=== PATIENT | male | born 1940 | race African-American/Black ===

== ENCOUNTER 2017-01-10 21:31 | Observation (INO) | payer MEDICARE, OTHER ==
[~2017-01-10] VITALS: Ht 180.3 cm; Wt 96.2 kg
[~2017-01-10 21:31] MED LIST: AMLO10TA2; COLC0.6T; HYDR500T13
[2017-01-10 22:40] LABS: Basophils # (auto) 0 uL; Basophils % (auto) 0.4 % (0.0-2.0); Eosinophils # (auto) 0.3 uL; Hematocrit 44.8 % (41.0-53.0); Hemoglobin 14.6 g/dL (13.5-17.5); Lymphocytes # (auto) 1.7 uL; Lymphocytes % (auto) 16.7 % (10.0-50.0); Mean Corpuscular Hemoglobin 30.4 pg (28.0-32.0); Mean Corpuscular Hgb Conc. 32.5 g/dL (32.0-36.0); Mean Corpuscular Volume 93.6 fL (80.0-100.0); Mean Platelet Volume 9.3 fL (7.4-10.4); Monocytes # (auto) 0.9 uL; Monocytes % (auto) 8.9 % (0.0-12.0); Platelet Count (auto) 270 10^3/uL (140-450); Red Cell Distribution Width 16.7 % (11.6-16.0); White Blood Cell 9.9 10^3/uL (4.4-10.8)
[2017-01-10 22:59] LABS: Albumin 3.2 g/dL (3.4-5.0); Anion Gap 11 (5-15); Aspartate Aminotransferase 6 U/L (15-37); BUN/Creatinine Ratio 10.4; Blood Urea Nitrogen 19 mg/dL (7-18); Calcium 8.6 mg/dL (8.5-10.1); Carbon Dioxide 24 mmol/L (21-32); Chloride 110 mmol/L (98-107); GFR African American 46 mL/min; GFR Non-African American 38 mL/min; Glucose 93 mg/dL (74-106); Potassium 4.2 mmol/L (3.5-5.1); Sodium 145 mmol/L (136-145)
[2017-01-10 23:04] LABS: Alkaline Phosphatase 65 U/L (45-117); Bilirubin, Total 0.4 mg/dL (0.2-1.0); Total Protein 8.2 g/dL (6.4-8.2)
[2017-01-11 05:50] LABS: Urine Bilirubin Negative (Negative); Urine Color Yellow (Yellow); Urine Glucose Normal (Normal); Urine Urobilinogen Normal (Negative)
[2017-01-11 05:51] LABS: Urine Blood 3+ /uL (Negative); Urine Ketone Negative (Negative); Urine Nitrite Negative (Negative)
[2017-01-11 06:06] LABS: Urine Mucus FEW (None Seen); Urine RBC 68 /hpf (0 - 3); Urine Squamous Epithelial Cell FEW /hpf (<5)
[2017-01-11 06:30] VITALS: BP 162/80
== END 2017-01-11 09:27 | disposition home or self-care (01) | DRG 694 ==
LOC: ER 21:35 → OVERFLOW 01-11 06:52 → ER 01-11 09:11
PROVIDERS: ADMIT Emergency Medicine; ATTEND Emergency Medicine
DX: N13.30 Unspecified hydronephrosis (principal); N20.1 Calculus of ureter; K57.90 Diverticulosis of intestine, part unspecified, without perforation or abscess without bleeding; K40.20 Bilateral inguinal hernia, without obstruction or gangrene, not specified as recurrent; M43.17 Spondylolisthesis, lumbosacral region; M54.2 Cervicalgia; I10 Essential (primary) hypertension; M10.9 Gout, unspecified; N40.0 Benign prostatic hyperplasia without lower urinary tract symptoms
CPT/HCPCS: 36415; 51702; 72040; 74176; 80053; 81001; 84484; 85025; 93005; 99285; G0378

== ENCOUNTER → 2018-06-02 | Outpatient (CLI) | payer MEDICARE, OTHER ==
[~2018-06-02] MED LIST changes: +AMLO10TA12 OR; -AMLO10TA2; +AMLO5TAB13 PO; +CIPR-173 PO; -COLC0.6T; +COLCPOW2 PO; +FINA5TAB4 PO; +HYDR-4683 PO; -HYDR500T13; +TAMS0.4C36 PO
== END | disposition home or self-care (01) ==
LOC: Rad HDHVI 13:07
PROVIDERS: ATTEND Internal Medicine Cardiovascular Disease
DX: I07.1 Rheumatic tricuspid insufficiency (principal); I45.10 Unspecified right bundle-branch block; I49.5 Sick sinus syndrome
CPT/HCPCS: 93306; 93880

== ENCOUNTER 2018-11-11 14:35 | Emergency (ER) | payer MEDICARE, OTHER ==
[~2018-11-11] VITALS: Ht 180.3 cm; Wt 93.0 kg
[2018-11-11 15:21] VITALS: BP 170/90
[2018-11-11] MEDS ORDERED: methylPREDNISolone SOD SUCC 125 MG/2 ML VL IM ONE (15:30)
[2018-11-11] MEDS ORDERED: cefTRIAXone SOD 1,000 MG VL IM ONE (15:30)
== END 2018-11-11 16:00 | disposition home or self-care (01) ==
LOC: ER 14:40
DX: J20.9 Acute bronchitis, unspecified (principal); J03.90 Acute tonsillitis, unspecified; I10 Essential (primary) hypertension; M10.9 Gout, unspecified; Z87.442 Personal history of urinary calculi
CPT/HCPCS: 71046; 96372; 99283; J0696; J2930

== ENCOUNTER 2018-12-08 22:20 | Emergency (ER) | payer MEDICARE, OTHER ==
[~2018-12-08] VITALS: Ht 180.3 cm; Wt 93.0 kg
[2018-12-08 22:25] VITALS: BP 132/81
[2018-12-09] MEDS ORDERED: cefTRIAXone SOD 1,000 MG VL IM ONE (02:30)
[2018-12-09] MEDS ORDERED: methylPREDNISolone SOD SUCC 125 MG/2 ML VL IM ONE (02:30)
== END 2018-12-09 03:13 | disposition home or self-care (01) ==
LOC: ER 22:21
DX: J45.909 Unspecified asthma, uncomplicated (principal); I10 Essential (primary) hypertension; Z87.442 Personal history of urinary calculi
CPT/HCPCS: 96372; 99283; J0696; J2930

== ENCOUNTER 2019-04-14 08:49 | Emergency (ER) | payer MEDICARE, OTHER ==
[~2019-04-14] VITALS: Ht 180.3 cm; Wt 95.7 kg
[2019-04-14 10:16] LABS: Basophils # (auto) 0 uL; Basophils % (auto) 0.8 % (0.0-2.0); Eosinophils # (auto) 0.4 uL; Eosinophils % (auto) 6.3 % (0.0-7.0); Hematocrit 41.7 % (41.0-53.0); Hemoglobin 13.5 g/dL (13.5-17.5); Lymphocytes # (auto) 1.8 uL; Lymphocytes % (auto) 31.1 % (10.0-50.0); Mean Corpuscular Hgb Conc. 32.5 g/dL (32.0-36.0); Mean Corpuscular Volume 95.5 fL (80.0-100.0); Monocytes # (auto) 0.6 uL; Monocytes % (auto) 10.5 % (0.0-12.0); Neutrophils % (auto) 51.3 % (37.0-80.0); Platelet Count (auto) 144 10^3/uL (140-450); Red Blood Cells 4.37 10^6/uL (4.5-5.90); Red Cell Distribution Width 15.7 % (11.8-14.3); White Blood Cell 5.9 10^3/uL (4.4-10.8)
[2019-04-14 10:33] LABS: Albumin 3.1 g/dL (3.4-5.0); Calcium 8.4 mg/dL (8.5-10.1)
[2019-04-14 10:37] LABS: BUN/Creatinine Ratio 13.2; Bilirubin, Total 0.6 mg/dL (0.2-1.0); Total Protein 6.7 g/dL (6.4-8.2)
[2019-04-14 11:35] LABS: Urine WBC None Seen /hpf (0 - 3)
[2019-04-14 12:46] LABS: Urine Bacteria NONE SEEN /hpf (None Seen); Urine Blood 2+ /uL (Negative)
[2019-04-14 13:47] VITALS: BP 158/82
== END 2019-04-14 14:08 | disposition home or self-care (01) ==
LOC: ER 08:53
DX: N39.0 Urinary tract infection, site not specified (principal); I10 Essential (primary) hypertension; Z79.899 Other long term (current) drug therapy; Z87.442 Personal history of urinary calculi
CPT/HCPCS: 36415; 74176; 80053; 81001; 85025

== ENCOUNTER 2019-04-23 23:01 | Emergency (ER) | payer MEDICARE, OTHER ==
[~2019-04-23] VITALS: Ht 180.3 cm; Wt 95.3 kg
[2019-04-23 23:18] VITALS: BP 139/76
[2019-04-23 23:58] LABS: Urine Bacteria FEW /hpf (None Seen); Urine Blood 3+ /uL (Negative); Urine Mucus FEW (None Seen); Urine WBC 82 /hpf (0 - 3)
[2019-04-24] MEDS ORDERED: PHENAZOPYRIDINE HCL 100 MG TAB PO ONE (01:45)
[2019-04-24] MEDS ORDERED: cefTRIAXone SOD 1,000 MG VL IM ONE (01:45)
== END 2019-04-24 02:18 | disposition home or self-care (01) ==
LOC: ER 23:01
DX: N39.0 Urinary tract infection, site not specified (principal); I10 Essential (primary) hypertension; Z87.442 Personal history of urinary calculi
CPT/HCPCS: 81001; 96372; 99283; J0696

== ENCOUNTER 2019-04-27 13:50 | Inpatient (IN) | payer MEDICARE, OTHER ==
[~2019-04-27] VITALS: Ht 180.3 cm; Wt 75.0 kg
[2019-04-27] MEDS ORDERED: SODIUM CHLORIDE 0.9% 1,000 ML IV ONE (15:24)
[2019-04-27] MEDS ORDERED: SODIUM CHLORIDE 0.9% 500 ML IVB ONE (15:24)
[2019-04-27 15:58] LABS: Basophils # (auto) 0.1 uL; Basophils % (auto) 1.2 % (0.0-2.0); Eosinophils # (auto) 0.2 uL; Hematocrit 43.4 % (41.0-53.0); Hemoglobin 14.1 g/dL (13.5-17.5); Lymphocytes # (auto) 1.8 uL; Lymphocytes % (auto) 23.3 % (10.0-50.0); Mean Corpuscular Hgb Conc. 32.6 g/dL (32.0-36.0); Mean Corpuscular Volume 95.3 fL (80.0-100.0); Monocytes # (auto) 0.7 uL; Monocytes % (auto) 9.3 % (0.0-12.0); Neutrophils # (auto) 4.9 uL; Neutrophils % (auto) 63.2 % (37.0-80.0); Platelet Count (auto) 151 10^3/uL (140-450); Red Blood Cells 4.56 10^6/uL (4.5-5.90); Red Cell Distribution Width 15.3 % (11.8-14.3); White Blood Cell 7.7 10^3/uL (4.4-10.8)
[2019-04-27 16:11] LABS: Urine WBC None Seen /hpf (0 - 3)
[2019-04-27 16:18] LABS: Albumin 3.6 g/dL (3.4-5.0); Magnesium 2.5 mg/dL (1.6-2.6); Potassium 4.6 mmol/L (3.5-5.1)
[2019-04-27 16:21] LABS: Bilirubin, Total 0.4 mg/dL (0.2-1.0); Total Protein 8.2 g/dL (6.4-8.2)
[2019-04-27 16:52] LABS: Urine Bacteria NONE SEEN /hpf (None Seen); Urine Blood 2+ /uL (Negative)
[2019-04-27] MEDS ORDERED: cefTRIAXone 1GM/50ML D5W 50 ML IV ONE (17:30)
[2019-04-27] MEDS ORDERED: HYDROcodone-ACET 5/325MG TAB PO PRN (17:45)
[2019-04-27] MEDS ORDERED: ACETAMINOPHEN 500 MG TAB PO PRN (17:45)
[2019-04-27] MEDS ORDERED: MORPHINE SULF INJ 2 MG/ML SYRINGE 1ML IV PRN ×2 (17:45)
[2019-04-27] MEDS ORDERED: ONDANSETRON HCL 4 MG/2 ML VIAL IV PRN (17:45)
[2019-04-27] MEDS ORDERED: NITROGLYCERIN 0.4 MG SL TAB SL PRN (17:45)
[2019-04-27] MEDS: SODIUM CHLORIDE 0.9% 1,000 ML IV SCH (18:59)
--- NOTE | 2019-04-27 20:05 | NUR ---
MS admit from ER BARTIAN Goldstein admitted to tele/MS. DID NOT GET REPORT/SBAR FROM ER NURSE. Patient oriented to Rico hu RN, [facility] unit, 222 room, A bed, and unit policies regarding patient care and visiting hours. Patient weighed by bedscale and encouraged to call if they need something. All questions and concerns addressed, patient verbalized understanding.
[2019-04-27 20:15] VITALS: BP 188/110
--- NOTE | 2019-04-27 20:15 | NUR ---
PATIENT DOES NOT REMEMBER THE MEDICATION HE IS TAKING AT HOME, WILL HAVE HIS DAUGHTER CHECK IT FOR HIM. Addendum: 04/27/19 at 2154 by Anabelle Magana RN Amended: Links added.
--- NOTE | 2019-04-27 21:08 | NUR ---
Spoke to hospitalist and notify of patient having bloody urine with clots, 500 cc output. New order given of Hemoglobin and hematocrit labs.
--- NOTE | 2019-04-27 21:15 | NUR ---
confirmed with h and h lab draw. clinical laboratory service teacher said litigation claim representative will be here shortly.
[2019-04-27] MEDS: DOCUSATE SOD 100 MG CAP PO SCH (21:23)
--- NOTE | 2019-04-27 21:58 | NUR ---
Spoke to MD Kamara urologist and notified him of patient having output of 500 cc of serosanguineous urine with clots, flushed goodwin and clots came out, changed leg back to regular goodwin bag and patient is resting comfortably at this time. MD Kamara asked to have EKG and chest xray for surgery tomorrow. Will carry out.
[2019-04-27 22:04] LABS: Hematocrit 40.7 % (41.0-53.0); Hemoglobin 13.1 g/dL (13.5-17.5)
--- NOTE | 2019-04-27 22:50 | NUR ---
Spoke to MD Kamara and notified him of patient having blood clots and urine output has stopped. MD Kamara provided new order of 3 way goodwin 20 malian with continuos bladder irrigation. Readback and confirmed. MD Kamara also advised me if patient goodwin is having issues after the continuos goodwin is placed, to stop irrigation and leave it till AM. Will Carry out.
[2019-04-27 23:04] VITALS: BP 137/73
--- NOTE | 2019-04-28 | NUR ---
SUCCESSFUL [address] KIRKLAND PLACED AND CONTINUOUS IRRIGATION STARTED. DARK RED SEROSANGUINEOUS URINE DRAINING INTO KIRKLAND WITH CLOTS.
[2019-04-28] MEDS: SODIUM CHLORIDE 0.9% 1,000 ML IV SCH ×3 (01:32→20:57)
--- NOTE | 2019-04-28 01:37 | NUR ---
continuous irrigation working properly. Urine is clear light pink. No clots noted. Patient states "I feel much better". Will continue to monitor patient.
[2019-04-28 04:45] VITALS: BP 105/69
[2019-04-28 07:02] LABS: Basophils # (auto) 0 uL; Basophils % (auto) 0.4 % (0.0-2.0); Eosinophils # (auto) 0.3 uL; Eosinophils % (auto) 3.2 % (0.0-7.0); Hematocrit 36.8 % (41.0-53.0); Hemoglobin 11.9 g/dL (13.5-17.5); Lymphocytes # (auto) 1.8 uL; Lymphocytes % (auto) 22.7 % (10.0-50.0); Mean Corpuscular Hemoglobin 30.9 pg (28.0-32.0); Mean Corpuscular Hgb Conc. 32.3 g/dL (32.0-36.0); Mean Corpuscular Volume 95.9 fL (80.0-100.0); Monocytes # (auto) 0.9 uL; Monocytes % (auto) 11.5 % (0.0-12.0); Neutrophils % (auto) 62.2 % (37.0-80.0); Platelet Count (auto) 130 10^3/uL (140-450); Red Blood Cells 3.83 10^6/uL (4.5-5.90)
--- NOTE | 2019-04-28 07:15 | NUR ---
Open Shift Note Received report on patient, awake and lying in bed with HOB above 30 degrees. Patient receiving continuous bladder irrigation at this time, states no pain. Discussed POC with patient and plans for procedure with Dr Kamara. Patient verbalized understanding. Bed in lowest locked position, side rails up x2 and call light within reach. Will continue to monitor.
[2019-04-28 07:17] LABS: INR 1.01 (0.9-1.15); Partial Thromboplastin Time 27.3 sec (23.64-32.05)
[2019-04-28 07:20] LABS: BUN/Creatinine Ratio 14.6; Calcium 8.3 mg/dL (8.5-10.1); Potassium 4.7 mmol/L (3.5-5.1)
--- NOTE | 2019-04-28 07:27 | NUR ---
Total irrigation output 14,150 ml pink urine and no clots noted. patient is resting in bed. No distress, pain, sob noted on patient. Notified Day RN of continuous bladder irrigation.
--- NOTE | 2019-04-28 09:07 | NUR ---
Patient Down To Pre Op Patient taken down to pre-op, made pre-op nurse Ricardo aware of patient's continuous bladder irrigation, verbalized understanding. Patient taken via bed, oriented nurse to irrigation and goodwin emptying. No signs of distress.
[2019-04-28 09:28] VITALS: BP 130/73
[2019-04-28] MEDS ORDERED: ceFAZolin 1GM/50ML 50 ML IV ONE (09:36)
[2019-04-28] MEDS ORDERED: MEPERIDINE HCL (25 MG/ML) 1ML VIAL ONE ×2 (09:49→11:18)
[2019-04-28] MEDS ORDERED: fentaNYL CITRATE 100 MCG/2 ML VL ONE (09:49)
[2019-04-28] MEDS ORDERED: MIDAZOLAM HCL 1MG/1ML-2 ML VIAL ONE (09:49)
[2019-04-28] MEDS ORDERED: DexAMETHasone SOD PHOS 10MG/1ML VIAL INJ ONE (09:49)
[2019-04-28] MEDS ORDERED: ETOMIDATE (2MG/ML) 20ML VIAL IV ONE (09:52)
[2019-04-28] MEDS ORDERED: SUCCINYLCHOLINE CHLORIDE 20 MG/ML 10ML VIAL IV ONE (09:55)
[2019-04-28] MEDS: amLODIPine BESYLATE 5 MG TAB PO SCH (10:00)
[2019-04-28] MEDS: DOCUSATE SOD 100 MG CAP PO SCH ×2 (10:00→20:57)
[2019-04-28] MEDS: FAMOTIDINE 20 MG TAB PO SCH (10:00)
[2019-04-28] MEDS ORDERED: ONDANSETRON HCL 4 MG/2 ML VIAL IV ONE (10:30)
[2019-04-28] MEDS ORDERED: ePHEDrine SULFATE 50 MG/ML AMP IV PRN (10:30)
[2019-04-28] MEDS ORDERED: LABETALOL HCL 5 MG/ML 4ML SYRINGE IV PRN (10:30)
[2019-04-28] MEDS ORDERED: KETOROLAC TROMETH 15 mg/ml 1ML VL IV ONE (10:30)
[2019-04-28] MEDS ORDERED: HYDROmorphone HCL 2 MG/ML VL IV PRN (10:30)
[2019-04-28] MEDS ORDERED: MORPHINE SULFATE 4 MG/ML SYR/VIAL IV ONE (12:00)
--- NOTE | 2019-04-28 13:20 | NUR ---
Patient was away from room for 1300 vital signs.
[2019-04-28 17:31] VITALS: BP 130/86
[2019-04-28] MEDS: cefTRIAXone 1GM/50ML D5W 50 ML IV SCH (18:27)
--- NOTE | 2019-04-28 18:47 | NUR ---
Closing Note Patient receiving continuous bladder irrigation. 15,000mL administered through catheter, 17,450mL returned during day shift. Urine bright red/pink colored. Patient also still receiving IV fluids. Bed in lowest locked position, side rails up x2 and call light within reach. No distress noted.
--- NOTE | 2019-04-28 19:30 | NUR ---
Opening Shift Note: A&Ox4, resting in bed. Room air, pain level 0/10, and currently bedrest; baseline independent without assistive devices. Bed locked in lowest position, side rails up x2, call light within reach, and bed alarm on for patient safety. IV 20 g in right forearm running NS at 125 ml/hr inserted on 04/27/19. Skin intact. Patient is s/p cystoscopy with TURP and clot evacuation with Dr. Kamara on 04/28/19. Currently has a CBI; hematuria present; light red in color with no clots present. POC discussed and questions answered. Will continue to round and reposition prn.
[2019-04-28 22:00] VITALS: BP 143/80
--- NOTE | 2019-04-29 05:02 | NUR ---
Page sent to legal entity controller hospitalist for a new prn order for antiacid; patient states the presence of heartburn.
[2019-04-29 05:10] VITALS: BP 123/50
[2019-04-29] MEDS: SODIUM CHLORIDE 0.9% 1,000 ML IV SCH ×3 (05:11→17:31)
--- NOTE | 2019-04-29 05:27 | NUR ---
Return page: new order for tums prn.
[2019-04-29] MEDS ORDERED: CALCIUM CARB 500 MG CHEW TAB PO PRN (05:30)
[2019-04-29 06:32] LABS: Basophils # (auto) 0 uL; Basophils % (auto) 0.1 % (0.0-2.0); Eosinophils # (auto) 0 uL; Hematocrit 32.9 % (41.0-53.0); Hemoglobin 10.9 g/dL (13.5-17.5); Lymphocytes # (auto) 0.9 uL; Lymphocytes % (auto) 9.8 % (10.0-50.0); Mean Corpuscular Hemoglobin 31.4 pg (28.0-32.0); Mean Corpuscular Hgb Conc. 33.3 g/dL (32.0-36.0); Mean Corpuscular Volume 94.4 fL (80.0-100.0); Monocytes # (auto) 0.7 uL; Neutrophils # (auto) 7.9 uL; Neutrophils % (auto) 83.1 % (37.0-80.0); Platelet Count (auto) 127 10^3/uL (140-450); Red Blood Cells 3.48 10^6/uL (4.5-5.90); Red Cell Distribution Width 15.3 % (11.8-14.3); White Blood Cell 9.6 10^3/uL (4.4-10.8)
--- NOTE | 2019-04-29 06:45 | NUR ---
Continuous Bladder Irrigation: Total in for CBI: 24,000 ml Total out for CBI: 29,450 ml Color of output is rolon red with no clots present. Patient states no abdominal pain or presents with abdominal distention
[2019-04-29 06:55] LABS: Calcium 8.5 mg/dL (8.5-10.1); Potassium 5.4 mmol/L (3.5-5.1)
[2019-04-29 07:00] LABS: Albumin 2.7 g/dL (3.4-5.0); BUN/Creatinine Ratio 15.3; Bilirubin, Total 0.4 mg/dL (0.2-1.0); Total Protein 6.1 g/dL (6.4-8.2)
--- NOTE | 2019-04-29 08:00 | NUR ---
Opening Shift Note Assumed care of patient, awake and alert. No S/S of distress/SOB or pain. Patient on CBI with rolon colored urine output. Instructed on POC and to call for assist PRN, will continue to monitor for changes Q1hr and PRN.
[2019-04-29] MEDS: cefTRIAXone 1GM/50ML D5W 50 ML IV SCH (08:27)
[2019-04-29 09:00] VITALS: BP 140/70
[2019-04-29] MEDS: FAMOTIDINE 20 MG TAB PO SCH (09:33)
[2019-04-29] MEDS: DOCUSATE SOD 100 MG CAP PO SCH ×2 (09:34→22:00)
[2019-04-29] MEDS: amLODIPine BESYLATE 5 MG TAB PO SCH (09:34)
[2019-04-29] MEDS: BELLADONNA ALKAL/OPIUM (16.2/30MG) RECT SUPP PR SCH (10:31)
[2019-04-29 13:00] VITALS: BP 117/74
--- NOTE | 2019-04-29 16:24 | NUR ---
assessment No discharge needs identified at this time. Addendum: 04/29/19 at 1625 by Yashira DILLARD Amended: Links added.
[2019-04-29 18:01] VITALS: BP 125/78
--- NOTE | 2019-04-29 18:32 | NUR ---
Intake and Output Total Oral intake-1000ml Total IVF in- 1500ml CBI: total in-[id number] CBI: total out-[id number]
--- NOTE | 2019-04-29 20:30 | NUR ---
Opening Shift Note: A&Ox4, resting in bed. Room air, pain level 0/10, and currently bedrest; baseline independent without assistive devices. Bed locked in lowest position, side rails up x2, call light within reach, and bed alarm on for patient safety. IV 20 g in right forearm running NS at 125 ml/hr inserted on 04/29/19. Skin intact. Patient is s/p cystoscopy with TURP and clot evacuation with Dr. Kamara on 04/28/19. Currently has a CBI; hematuria present; light red in color with no clots present. POC discussed and questions answered. Will continue to round and reposition prn.
[2019-04-29 22:00] VITALS: BP 124/66
[2019-04-30] MEDS: SODIUM CHLORIDE 0.9% 1,000 ML IV SCH ×3 (02:39→17:05)
[2019-04-30 05:00] VITALS: BP 106/60
--- NOTE | 2019-04-30 06:08 | NUR ---
New IV: IV 20 g in right forearm leaking and discontinued. New IV 20 g in left forearm inserted x1 attempt. Patient tolerated well.
--- NOTE | 2019-04-30 06:40 | NUR ---
INTAKE AND OUTPUT CBI: Intake = 9000 ml total from CBI bags Output = 9350 ml out from catheter bag IVF NS @ 125 ml/hr = 1500 ml in from IVF
--- NOTE | 2019-04-30 08:00 | NUR ---
Opening Shift Note Assumed care of patient, awake and alert. No S/S of distress/SOB or pain. With CBI draining to pink output that is becoming clearer. Instructed on POC and to call for assist PRN, will continue to monitor for changes Q1hr and PRN.
[2019-04-30] MEDS: cefTRIAXone 1GM/50ML D5W 50 ML IV SCH (09:02)
[2019-04-30] MEDS: FAMOTIDINE 20 MG TAB PO SCH (09:03)
[2019-04-30] MEDS: amLODIPine BESYLATE 5 MG TAB PO SCH (09:03)
[2019-04-30 09:09] VITALS: BP 118/65
[2019-04-30] MEDS: BELLADONNA ALKAL/OPIUM (16.2/30MG) RECT SUPP PR SCH (10:00)
[2019-04-30] MEDS: DOCUSATE SOD 100 MG CAP PO SCH ×3 (10:00→21:06)
--- NOTE | 2019-04-30 10:00 | NUR ---
Belladona suppository dose per rectum today held. Patient stated, he is not in pain/spasm post TURP.
[2019-04-30 13:11] VITALS: BP 115/62
[2019-04-30 16:50] VITALS: BP 109/54
--- NOTE | 2019-04-30 18:39 | NUR ---
INTAKE AND OUTPUT TOTAL IVF INTAKE - 1000ML TOTAL ORAL INTAKE - 900ML CBI: TOTAL IN - 6000ML TOTAL OUTPUT - 8000ML
--- NOTE | 2019-04-30 20:00 | NUR ---
Opening Shift Note: A&Ox4, resting in bed. Room air, pain level 0/10, and independent without assistive device use. Bed locked in lowest position, side rails up x2, call light within reach, and bed alarm on for patient safety. IV 20 g in right forearm running NS at 125 ml/hr inserted on 04/29/19. Skin intact. Patient is s/p cystoscopy with TURP and clot evacuation with Dr. Kamara on 04/28/19. Currently has a CBI; hematuria present; light red in color with no clots present. POC discussed and questions answered. Will continue to round and reposition prn. Addendum: 04/30/19 at 2135 by CHARLOTTE GARCIA RN IV left forearm 20 g inserted on 04/30/19
--- NOTE | 2019-04-30 22:00 | NUR ---
Patient refused 2200 colace.
[2019-05-01] MEDS: SODIUM CHLORIDE 0.9% 1,000 ML IV SCH ×2 (01:39→09:39)
[2019-05-01 04:52] VITALS: BP 126/65
--- NOTE | 2019-05-01 07:00 | NUR ---
Total intake and output: Intake: 3000 ml through CBI Output: 5550 ml through CBI Intake: IVF at 125 ml/hr = 1500 ml
--- NOTE | 2019-05-01 07:30 | NUR ---
Opening Shift Note Assumed care of patient, awake and alert. No S/S of distress/SOB or pain. CBI draining to pink tinged output. Drained 1600ml per report. Instructed on POC and to call for assist PRN, will continue to monitor for changes Q1hr and PRN.
[2019-05-01] MEDS: cefTRIAXone 1GM/50ML D5W 50 ML IV SCH (08:53)
[2019-05-01] MEDS: DOCUSATE SOD 100 MG CAP PO SCH (08:54)
[2019-05-01] MEDS: FAMOTIDINE 20 MG TAB PO SCH (08:54)
[2019-05-01] MEDS: amLODIPine BESYLATE 5 MG TAB PO SCH (08:54)
[2019-05-01 09:00] VITALS: BP 124/58
[2019-05-01] MEDS: BELLADONNA ALKAL/OPIUM (16.2/30MG) RECT SUPP PR SCH (10:00)
--- NOTE | 2019-05-01 10:00 | NUR ---
No complaints of pain/spasm 3rd day post TURP. Held Belladona suppository.
[2019-05-01 11:30] VITALS: BP 124/58
--- NOTE | 2019-05-01 11:30 | NUR ---
Patient for discharge today. CBI was finished, urine output pink tinged in color. Leg bag applied. Will continue care. Addendum: 05/01/19 at 1232 by Alfred Rapp RN Total CBI output - 3500ml.
[2019-05-01 12:52] VITALS: BP 131/62
--- NOTE | 2019-05-01 14:55 | NUR ---
Discharge instructions given as ordered. Encourage [facility] as instructed. Follow up with Dr. Kamara-urologist as scheduled on 05/06/19 at the office. All questions and concerns addressed. Patient verbalized understanding. Medication reconciliation form completed and copy given to patient. IV removed with catheter intact, pressure dressing applied, goodwin catheter in placed and connected to urinary leg bag. Telemetry unit returned to [facility]. Patient taken to vehicle via wheelchair with all personal belongings, accompanied by staff and family member. No distress noted at time of departure.
== END 2019-05-01 14:55 | disposition home or self-care (01) | DRG 713 ==
LOC: ER 13:55 → OVERFLOW 13:56 → CENTRAL 20:00 → TELE-CENTR 04-28 14:36
PROVIDERS: ADMIT Nurse Practitioner Acute Care; ATTEND Family Medicine
PROC: 0VT08ZZ Resection of Prostate, Via Natural or Artificial Opening Endoscopic (ICD-10-PCS; principal; 2019-04-28 10:01)
DX: N40.1 Benign prostatic hyperplasia with lower urinary tract symptoms (principal); N17.9 Acute kidney failure, unspecified; N20.2 Calculus of kidney with calculus of ureter; N39.0 Urinary tract infection, site not specified; E03.9 Hypothyroidism, unspecified; E78.00 Pure hypercholesterolemia, unspecified; E78.5 Hyperlipidemia, unspecified; M10.9 Gout, unspecified; N21.0 Calculus in bladder; R31.0 Gross hematuria; Z79.899 Other long term (current) drug therapy; Z82.49 Family history of ischemic heart disease and other diseases of the circulatory system; Z83.3 Family history of diabetes mellitus
CPT/HCPCS: 36415; 51702; 71045; 74176; 80048; 80053; 81001; 83690; 83735; 84154; 85014; 85018; 85025; 85610; 85730; 86850; 86900; 86901; 87086; 93005; 96374; G0378; J0330; J0690; J0696; J1100; J2250

== ENCOUNTER → 2019-08-15 | Outpatient (CLI) | payer MEDICARE, OTHER ==
[~2019-08-15] MED LIST changes: -AMLO10TA12 OR; -AMLO5TAB13 PO; +AMLO5TAB15 PO; -CIPR-173 PO; -COLCPOW2 PO; -HYDR-4683 PO
== END | disposition home or self-care (01) ==
LOC: Rad HDHVI 11:51
PROVIDERS: ATTEND Internal Medicine Cardiovascular Disease
DX: I82.492 Acute embolism and thrombosis of other specified deep vein of left lower extremity (principal); I12.9 Hypertensive chronic kidney disease with stage 1 through stage 4 chronic kidney disease, or unspecified chronic kidney disease; N18.9 Chronic kidney disease, unspecified
CPT/HCPCS: 93971

== ENCOUNTER → 2019-08-16 | Outpatient (CLI) | payer MEDICARE, OTHER | END | disposition home or self-care (01) | LOC: Rad HDHVI 15:54 | PROVIDERS: ATTEND Internal Medicine Cardiovascular Disease | DX: I08.1 Rheumatic disorders of both mitral and tricuspid valves (principal); I45.0 Right fascicular block; R07.89 Other chest pain; R00.1 Bradycardia, unspecified | CPT/HCPCS: 93306 ==

== ENCOUNTER → 2019-08-19 | Outpatient (CLI) | payer MEDICARE, OTHER ==
[~2019-08-19] VITALS: Ht 181.6 cm; Wt 88.5 kg
[~2019-08-19] MED LIST changes: +ADENOSINE 74 MG in GIVE UN-DILUTED 0 ML IV ONE; +ADENOSINE 90 MG/30 ML INJ IV ONE
[2019-08-19 12:11] LABS: Basophils # (auto) 0 uL; Hemoglobin 11.5 g/dL (13.5-17.5)
[2019-08-19 12:14] LABS: Basophils % (auto) 0.6 % (0.0-2.0); Eosinophils # (auto) 0.5 uL; Eosinophils % (auto) 7.2 % (0.0-7.0); Hematocrit 36.5 % (41.0-53.0); Lymphocytes # (auto) 2.4 uL; Lymphocytes % (auto) 37.1 % (10.0-50.0); Mean Corpuscular Hemoglobin 26.1 pg (28.0-32.0); Mean Corpuscular Hgb Conc. 31.4 g/dL (32.0-36.0); Mean Corpuscular Volume 83.1 fL (80.0-100.0); Monocytes # (auto) 0.7 uL; Monocytes % (auto) 11.6 % (0.0-12.0); Neutrophils # (auto) 2.8 uL; Neutrophils % (auto) 43.5 % (37.0-80.0); Platelet Count (auto) 168 10^3/uL (140-450); White Blood Cell 6.4 10^3/uL (4.4-10.8)
[2019-08-19 12:23] LABS: Red Cell Distribution Width 20.1 % (11.8-14.3)
[2019-08-19 12:55] LABS: Free T4 (Free Thyroxine) 1.11 ng/dL (0.89-1.76); Prostate Specific Antigen 2.38 ng/mL (0.0-4.0)
[2019-08-19 12:58] LABS: Albumin 3.2 g/dL (3.4-5.0); Bilirubin, Direct 0.1 mg/dL (0-0.2); Calcium 8.8 mg/dL (8.5-10.1)
[2019-08-19 13:02] LABS: Bilirubin, Total 0.3 mg/dL (0.2-1.0); Total Protein 6.9 g/dL (6.4-8.2)
[2019-08-19 16:02] LABS: Urine Blood TRACE /uL (Negative)
== END | disposition home or self-care (01) ==
LOC: Rad HDHVI 09:04
PROVIDERS: ATTEND Internal Medicine Cardiovascular Disease
DX: E03.9 Hypothyroidism, unspecified (principal); K90.9 Intestinal malabsorption, unspecified; C61 Malignant neoplasm of prostate; E29.1 Testicular hypofunction; N39.0 Urinary tract infection, site not specified; D51.9 Vitamin B12 deficiency anemia, unspecified; Z79.899 Other long term (current) drug therapy
CPT/HCPCS: 36415; 78452; 80048; 80061; 80076; 81003; 82306; 82607; 83036; 84153; 84403; 84439; 84443; 85025; 93005; 96374; 96375; A9500; J0153

== ENCOUNTER 2020-09-20 18:14 | Inpatient (IN) | payer MEDICARE, OTHER ==
[~2020-09-20] VITALS: Ht 180.3 cm; Wt 93.9 kg
[~2020-09-20 18:14] MED LIST changes: -ADENOSINE 74 MG in GIVE UN-DILUTED 0 ML IV ONE; -ADENOSINE 90 MG/30 ML INJ IV ONE
[2020-09-20] MEDS ORDERED: SODIUM CHLORIDE 0.9% 500 ML IV ONE (19:15)
[2020-09-20 19:56] LABS: Basophils # (auto) 0 10 ^3/uL (0-0.2); Basophils % (auto) 0.1 % (0.0-2.0); Eosinophils # (auto) 0 10 ^3/uL (0-0.8); Hematocrit 43.1 % (41.0-53.0); Hemoglobin 14.1 g/dL (13.5-17.5); Lymphocytes % (auto) 5.8 % (10.0-50.0); Mean Corpuscular Hgb Conc. 32.6 g/dL (32.0-36.0); Monocytes # (auto) 2.3 10 ^3/uL (0-1.3); Monocytes % (auto) 12.8 % (0.0-12.0); Neutrophils # (auto) 14.5 10 ^3/uL (1.6-8.6); Neutrophils % (auto) 81.3 % (37.0-80.0); Platelet Count (auto) 166 10^3/uL (140-450); Red Blood Cells 4.54 10^6/uL (4.5-5.90); Red Cell Distribution Width 15.5 % (11.8-14.3); White Blood Cell 17.9 10^3/uL (4.4-10.8)
[2020-09-20] MEDS ORDERED: DexAMETHasone SOD PHOS 10MG/1ML VIAL INJ IV ONE (20:15)
[2020-09-20 20:19] LABS: Albumin 2.8 g/dL (3.4-5.0); Calcium 8.5 mg/dL (8.5-10.1); Magnesium 2.1 mg/dL (1.6-2.6)
[2020-09-20 20:23] LABS: INR 1.16 (0.9-1.15); Partial Thromboplastin Time 29.6 sec (23.0-31.2)
[2020-09-20 20:24] LABS: Bilirubin, Total 1.4 mg/dL (0.2-1.0); Total Protein 7.8 g/dL (6.4-8.2)
[2020-09-20] MEDS ORDERED: ACETAMINOPHEN 325 MG TAB PO ONE (21:00)
[2020-09-20 21:15] LABS: Urine Specific Gravity 1.025 (1.001-1.035)
[2020-09-20 21:16] LABS: Urine Bacteria NONE SEEN /hpf (None Seen); Urine Blood 1+ /uL (Negative); Urine Hyaline Cast MOD /lpf (0 - 2); Urine Mucus FEW (None Seen); Urine WBC <1 /hpf (0 - 3)
[2020-09-21] MEDS ORDERED: AZITHROMYCIN 500MG/ 250ML 250 ML IV ONE (02:30)
[2020-09-21] MEDS ORDERED: DOXYCYCLINE 100MG/250ML 250 ML IV ONE (02:30)
[2020-09-21] MEDS ORDERED: NITROGLYCERIN 0.4 MG SL TAB SL PRN (04:00)
[2020-09-21] MEDS ORDERED: ACETAMINOPHEN 325 MG TAB PO PRN (04:00)
[2020-09-21] MEDS ORDERED: ONDANSETRON HCL 4 MG/2 ML VIAL IV PRN (04:00)
[2020-09-21] MEDS ORDERED: MORPHINE SULF INJ 2 MG/ML SYRINGE 1ML IV PRN (04:00)
[2020-09-21] MEDS ORDERED: ALBUTEROL SULF HFA 90MCG INH 200DOSE IN SCH (06:00)
[2020-09-21] MEDS: SODIUM CHLOR 0.9% PF (SALINE LOCK) 10ML VIAL/SYR IV SCH ×3 (06:29→21:47)
[2020-09-21] MEDS ORDERED: ZINC SULFATE 220mg CAP or TAB PO SCH (10:00)
[2020-09-21] MEDS ORDERED: BUDESONIDE (INHALATION) 180 MCG IH IN SCH (10:00)
[2020-09-21] MEDS ORDERED: ASCORBIC ACID 500 MG TAB PO SCH (10:00)
[2020-09-21] MEDS ORDERED: HEPARIN SODIUM (PORCINE) 5000 UNITS/ML 1ML VIAL SC SCH (10:00)
[2020-09-21] MEDS ORDERED: CHOLECALCIFEROL (VITD3) 2,000 UNIT CAP PO SCH (10:00)
[2020-09-21] MEDS ORDERED: DexAMETHasone SOD PHOS 10MG/1ML VIAL INJ IV SCH (10:00)
[2020-09-21] MEDS: ASPirin 81 mg TAB PO SCH (10:43)
[2020-09-21] MEDS: AZITHROMYCIN 500MG/ 250ML 250 ML IV SCH (10:43)
[2020-09-21] MEDS: TAMSULOSIN HYDROCHLORIDE 0.4 MG CAP PO SCH (10:46)
[2020-09-21] MEDS: MULTIPLE VITAMIN TAB PO SCH (10:47)
[2020-09-21] MEDS: amLODIPine BESYLATE 5 MG TAB PO SCH (10:48)
[2020-09-21] MEDS: FAMOTIDINE 20 MG TAB PO SCH (10:49)
[2020-09-21] MEDS: FINASTERIDE 5 MG TAB PO SCH (10:50)
[2020-09-21] MEDS ORDERED: SODIUM CHLORIDE 0.9% 1,000 ML IV ONE ×2 (13:00→14:15)
[2020-09-21] MEDS: SUCRALFATE 1 GM/10 ML ORAL SUSP PO SCH ×2 (17:00→18:17)
[2020-09-21 17:05] VITALS: BP 124/70
[2020-09-21] MEDS: ENOXAPARIN SOD 100 MG/1 ML SYRINGE SC SCH (21:47)
[2020-09-22 05:00] VITALS: BP 133/76
[2020-09-22] MEDS: SODIUM CHLOR 0.9% PF (SALINE LOCK) 10ML VIAL/SYR IV SCH ×3 (06:06→21:52)
[2020-09-22] MEDS: SUCRALFATE 1 GM/10 ML ORAL SUSP PO SCH ×4 (06:21→21:52)
[2020-09-22 07:08] LABS: Basophils # (auto) 0 10 ^3/uL (0-0.2); Basophils % (auto) 0.1 % (0.0-2.0); Eosinophils # (auto) 0 10 ^3/uL (0-0.8); Hematocrit 39.7 % (41.0-53.0); Lymphocytes # (auto) 0.9 10 ^3/uL (0.4-5.4); Lymphocytes % (auto) 5.3 % (10.0-50.0); Mean Corpuscular Hemoglobin 30.8 pg (28.0-32.0); Mean Corpuscular Hgb Conc. 32.8 g/dL (32.0-36.0); Monocytes # (auto) 1.5 10 ^3/uL (0-1.3); Monocytes % (auto) 8.7 % (0.0-12.0); Neutrophils # (auto) 14.4 10 ^3/uL (1.6-8.6); Neutrophils % (auto) 85.9 % (37.0-80.0); Platelet Count (auto) 198 10^3/uL (140-450); Red Blood Cells 4.22 10^6/uL (4.5-5.90); Red Cell Distribution Width 15.7 % (11.8-14.3); White Blood Cell 16.7 10^3/uL (4.4-10.8)
[2020-09-22 07:27] LABS: Potassium 4.1 mmol/L (3.5-5.1)
[2020-09-22 07:47] LABS: Albumin 2.3 g/dL (3.4-5.0); BUN/Creatinine Ratio 23.7; Bilirubin, Total 0.5 mg/dL (0.2-1.0); Calcium 8.9 mg/dL (8.5-10.1); Total Protein 7.2 g/dL (6.4-8.2)
[2020-09-22 09:03] VITALS: BP 129/73
[2020-09-22] MEDS: ENOXAPARIN SOD 100 MG/1 ML SYRINGE SC SCH ×2 (09:52→21:52)
[2020-09-22] MEDS: FAMOTIDINE 20 MG TAB PO SCH (09:53)
[2020-09-22] MEDS: amLODIPine BESYLATE 5 MG TAB PO SCH (09:54)
[2020-09-22] MEDS: AZITHROMYCIN 500MG/ 250ML 250 ML IV SCH (09:54)
[2020-09-22] MEDS: TAMSULOSIN HYDROCHLORIDE 0.4 MG CAP PO SCH (09:54)
[2020-09-22] MEDS: MULTIPLE VITAMIN TAB PO SCH (09:54)
[2020-09-22] MEDS: ASPirin 81 mg TAB PO SCH (09:55)
[2020-09-22] MEDS: FINASTERIDE 5 MG TAB PO SCH (09:56)
[2020-09-22] MEDS: PANTOPRAZOLE 40 MG/10 ML VIAL INJ IV SCH (10:00)
[2020-09-22 12:59] VITALS: BP 117/64
[2020-09-22 16:38] VITALS: BP 114/65
[2020-09-22 20:00] VITALS: BP 103/61
[2020-09-22] MEDS: SILDENAFIL CITRATE 20 MG TAB PO SCH (20:02)
[2020-09-23] MEDS: SODIUM CHLOR 0.9% PF (SALINE LOCK) 10ML VIAL/SYR IV SCH ×3 (06:23→21:46)
[2020-09-23] MEDS: SUCRALFATE 1 GM/10 ML ORAL SUSP PO SCH ×4 (06:24→21:46)
[2020-09-23 06:39] LABS: Basophils # (auto) 0 10 ^3/uL (0-0.2); Basophils % (auto) 0.1 % (0.0-2.0); Eosinophils # (auto) 0 10 ^3/uL (0-0.8); Hematocrit 40.5 % (41.0-53.0); Hemoglobin 13.2 g/dL (13.5-17.5); Lymphocytes # (auto) 0.7 10 ^3/uL (0.4-5.4); Lymphocytes % (auto) 4.7 % (10.0-50.0); Mean Corpuscular Hemoglobin 30.8 pg (28.0-32.0); Mean Corpuscular Hgb Conc. 32.5 g/dL (32.0-36.0); Mean Corpuscular Volume 94.9 fL (80.0-100.0); Monocytes # (auto) 1.2 10 ^3/uL (0-1.3); Monocytes % (auto) 8.3 % (0.0-12.0); Neutrophils # (auto) 12.2 10 ^3/uL (1.6-8.6); Neutrophils % (auto) 86.9 % (37.0-80.0); Nucleated Red Blood Cells % 0.1 %; Platelet Count (auto) 223 10^3/uL (140-450); Red Blood Cells 4.27 10^6/uL (4.5-5.90); Red Cell Distribution Width 15.3 % (11.8-14.3)
[2020-09-23 07:19] LABS: Albumin 2.3 g/dL (3.4-5.0); BUN/Creatinine Ratio 27.1; Bilirubin, Total 0.4 mg/dL (0.2-1.0); Calcium 8.8 mg/dL (8.5-10.1); Total Protein 7.4 g/dL (6.4-8.2)
[2020-09-23 08:04] VITALS: BP 94/53
[2020-09-23] MEDS: PANTOPRAZOLE 40 MG/10 ML VIAL INJ IV SCH (08:53)
[2020-09-23] MEDS: TAMSULOSIN HYDROCHLORIDE 0.4 MG CAP PO SCH (08:54)
[2020-09-23] MEDS: ASPirin 81 mg TAB PO SCH (08:54)
[2020-09-23] MEDS: FAMOTIDINE 20 MG TAB PO SCH (08:54)
[2020-09-23] MEDS: ENOXAPARIN SOD 100 MG/1 ML SYRINGE SC SCH ×2 (08:54→21:46)
[2020-09-23] MEDS: MULTIPLE VITAMIN TAB PO SCH (08:55)
[2020-09-23] MEDS: AZITHROMYCIN 500MG/ 250ML 250 ML IV SCH (08:55)
[2020-09-23] MEDS: SILDENAFIL CITRATE 20 MG TAB PO SCH ×3 (08:55→20:12)
[2020-09-23] MEDS: amLODIPine BESYLATE 5 MG TAB PO SCH (08:55)
[2020-09-23] MEDS: FINASTERIDE 5 MG TAB PO SCH (08:56)
[2020-09-23] MEDS: SODIUM CHLORIDE 0.9% 1,000 ML IV SCH ×2 (11:37→18:14)
[2020-09-23 12:19] VITALS: BP 97/54
[2020-09-23 20:00] VITALS: BP 110/62
[2020-09-23 20:01] LABS: Urine Bacteria NONE SEEN /hpf (None Seen); Urine Blood Negative /uL (Negative); Urine Hyaline Cast FEW /lpf (0 - 2); Urine Specific Gravity 1.019 (1.001-1.035); Urine WBC 2 /hpf (0 - 3)
[2020-09-23 20:36] LABS: Creatinine, Urine 135 mg/dL (30.0-125.0); Sodium Urine 23 mmol/L (40-220)
[2020-09-23] MEDS ORDERED: THROAT LOZENGES(CEPASTAT) MT PRN (21:30)
[2020-09-24] MEDS: SODIUM CHLORIDE 0.9% 1,000 ML IV SCH ×3 (02:30→18:30)
[2020-09-24] MEDS: HYDROcodone-ACET 5/325MG TAB PO PRN ×2 (03:39→09:03)
[2020-09-24] MEDS: SUCRALFATE 1 GM/10 ML ORAL SUSP PO SCH ×4 (06:19→20:53)
[2020-09-24] MEDS: SODIUM CHLOR 0.9% PF (SALINE LOCK) 10ML VIAL/SYR IV SCH ×3 (06:19→20:54)
[2020-09-24 07:30] LABS: Basophils # (auto) 0 10 ^3/uL (0-0.2); Basophils % (auto) 0.1 % (0.0-2.0); Eosinophils # (auto) 0 10 ^3/uL (0-0.8); Eosinophils % (auto) 0.1 % (0.0-7.0); Hematocrit 33.9 % (41.0-53.0); Hemoglobin 11.3 g/dL (13.5-17.5); Lymphocytes # (auto) 1.2 10 ^3/uL (0.4-5.4); Lymphocytes % (auto) 11.9 % (10.0-50.0); Mean Corpuscular Hemoglobin 31.4 pg (28.0-32.0); Mean Corpuscular Hgb Conc. 33.3 g/dL (32.0-36.0); Mean Corpuscular Volume 94.3 fL (80.0-100.0); Monocytes # (auto) 1.4 10 ^3/uL (0-1.3); Monocytes % (auto) 13.9 % (0.0-12.0); Neutrophils # (auto) 7.4 10 ^3/uL (1.6-8.6); Platelet Count (auto) 204 10^3/uL (140-450); Red Blood Cells 3.59 10^6/uL (4.5-5.90); Red Cell Distribution Width 15.2 % (11.8-14.3)
[2020-09-24 07:49] LABS: Potassium 3.6 mmol/L (3.5-5.1)
[2020-09-24 08:00] VITALS: BP 105/61
[2020-09-24] MEDS: SILDENAFIL CITRATE 20 MG TAB PO SCH ×3 (08:00→20:54)
[2020-09-24 08:02] LABS: Albumin 1.9 g/dL (3.4-5.0); BUN/Creatinine Ratio 28.9; Bilirubin, Total 0.4 mg/dL (0.2-1.0); Calcium 7.9 mg/dL (8.5-10.1)
[2020-09-24 09:00] VITALS: BP 105/61
[2020-09-24] MEDS: ASPirin 81 mg TAB PO SCH (09:02)
[2020-09-24] MEDS: MULTIPLE VITAMIN TAB PO SCH (09:03)
[2020-09-24] MEDS: FINASTERIDE 5 MG TAB PO SCH (09:03)
[2020-09-24] MEDS: FAMOTIDINE 20 MG TAB PO SCH (09:03)
[2020-09-24] MEDS: TAMSULOSIN HYDROCHLORIDE 0.4 MG CAP PO SCH (09:04)
[2020-09-24] MEDS: AZITHROMYCIN 500MG/ 250ML 250 ML IV SCH (09:05)
[2020-09-24] MEDS: PANTOPRAZOLE 40 MG/10 ML VIAL INJ IV SCH (09:05)
[2020-09-24] MEDS: amLODIPine BESYLATE 5 MG TAB PO SCH (09:14)
[2020-09-24] MEDS: ENOXAPARIN SOD 100 MG/1 ML SYRINGE SC SCH ×2 (11:23→20:54)
[2020-09-24 13:00] VITALS: BP 106/61
[2020-09-24 17:14] VITALS: BP 109/52
[2020-09-24 20:00] VITALS: BP 109/52
[2020-09-24 21:37] VITALS: BP 124/69
[2020-09-25 05:00] VITALS: BP 150/87
[2020-09-25] MEDS: SODIUM CHLORIDE 0.9% 1,000 ML IV SCH (05:42)
[2020-09-25] MEDS: SODIUM CHLOR 0.9% PF (SALINE LOCK) 10ML VIAL/SYR IV SCH ×3 (05:42→22:26)
[2020-09-25 06:21] LABS: Basophils # (auto) 0 10 ^3/uL (0-0.2); Basophils % (auto) 0.1 % (0.0-2.0); Eosinophils # (auto) 0.1 10 ^3/uL (0-0.8); Eosinophils % (auto) 0.8 % (0.0-7.0); Hematocrit 37.9 % (41.0-53.0); Hemoglobin 12.2 g/dL (13.5-17.5); Lymphocytes # (auto) 1.2 10 ^3/uL (0.4-5.4); Mean Corpuscular Hemoglobin 30.4 pg (28.0-32.0); Mean Corpuscular Hgb Conc. 32.1 g/dL (32.0-36.0); Mean Corpuscular Volume 94.9 fL (80.0-100.0); Monocytes # (auto) 1.9 10 ^3/uL (0-1.3); Monocytes % (auto) 17.1 % (0.0-12.0); Platelet Count (auto) 233 10^3/uL (140-450); Red Cell Distribution Width 15.9 % (11.8-14.3); White Blood Cell 11.3 10^3/uL (4.4-10.8)
[2020-09-25] MEDS: SUCRALFATE 1 GM/10 ML ORAL SUSP PO SCH ×4 (06:24→22:24)
[2020-09-25 06:54] LABS: Albumin 1.9 g/dL (3.4-5.0); BUN/Creatinine Ratio 23.5; Calcium 7.9 mg/dL (8.5-10.1); Potassium 3.7 mmol/L (3.5-5.1)
[2020-09-25 07:08] LABS: Bilirubin, Total 0.4 mg/dL (0.2-1.0); CRP High Sensitivity 17.1 mg/dL (< 0.3); Total Protein 6.1 g/dL (6.4-8.2)
[2020-09-25 08:00] VITALS: BP 128/69
[2020-09-25] MEDS: SILDENAFIL CITRATE 20 MG TAB PO SCH ×3 (08:12→20:15)
[2020-09-25] MEDS: FAMOTIDINE 20 MG TAB PO SCH (09:32)
[2020-09-25] MEDS: ASPirin 81 mg TAB PO SCH (09:32)
[2020-09-25] MEDS: FINASTERIDE 5 MG TAB PO SCH (09:32)
[2020-09-25] MEDS: TAMSULOSIN HYDROCHLORIDE 0.4 MG CAP PO SCH (09:32)
[2020-09-25] MEDS: amLODIPine BESYLATE 5 MG TAB PO SCH (09:33)
[2020-09-25] MEDS: MULTIPLE VITAMIN TAB PO SCH (09:33)
[2020-09-25] MEDS: PANTOPRAZOLE 40 MG/10 ML VIAL INJ IV SCH (09:34)
[2020-09-25] MEDS: AZITHROMYCIN 500MG/ 250ML 250 ML IV SCH (09:34)
[2020-09-25] MEDS: ENOXAPARIN SOD 100 MG/1 ML SYRINGE SC SCH (09:46)
[2020-09-25 12:00] VITALS: BP 114/62
[2020-09-25 17:00] VITALS: BP 114/56
[2020-09-25] MEDS: DOCUSATE SOD 100 MG CAP PO PRN (17:49)
[2020-09-25 22:00] VITALS: BP 109/62
[2020-09-25] MEDS: APIXABAN 5 MG TAB PO SCH (22:24)
[2020-09-26 05:00] VITALS: BP 125/63
[2020-09-26] MEDS: SODIUM CHLOR 0.9% PF (SALINE LOCK) 10ML VIAL/SYR IV SCH ×3 (06:19→21:28)
[2020-09-26] MEDS: SUCRALFATE 1 GM/10 ML ORAL SUSP PO SCH ×4 (06:20→21:28)
[2020-09-26 07:12] LABS: Hematocrit 34.7 % (41.0-53.0); Hemoglobin 11.2 g/dL (13.5-17.5); Mean Corpuscular Hemoglobin 30.3 pg (28.0-32.0); Mean Corpuscular Hgb Conc. 32.3 g/dL (32.0-36.0); Mean Corpuscular Volume 93.9 fL (80.0-100.0); Platelet Count (auto) 266 10^3/uL (140-450); Red Blood Cells 3.69 10^6/uL (4.5-5.90); Red Cell Distribution Width 15.8 % (11.8-14.3); White Blood Cell 13.2 10^3/uL (4.4-10.8)
[2020-09-26 07:23] LABS: Albumin 1.8 g/dL (3.4-5.0); BUN/Creatinine Ratio 17.2; Calcium 8.1 mg/dL (8.5-10.1); Potassium 3.4 mmol/L (3.5-5.1)
[2020-09-26 07:26] LABS: Bilirubin, Total 0.6 mg/dL (0.2-1.0); Total Protein 6.1 g/dL (6.4-8.2)
[2020-09-26 07:44] LABS: Basophils % (manual) 0 (0.0-2.0); Promyelocytes % 0
[2020-09-26 07:45] LABS: Blast Cells 0
[2020-09-26] MEDS: SILDENAFIL CITRATE 20 MG TAB PO SCH ×3 (08:51→20:26)
[2020-09-26 09:00] VITALS: BP 130/73
[2020-09-26] MEDS: PANTOPRAZOLE 40 MG/10 ML VIAL INJ IV SCH (10:00)
[2020-09-26 11:30] LABS: Band Neutrophils % (manual) 3; Lymphocytes % (manual) 7 (10.0-50.0)
[2020-09-26 11:31] LABS: Eosinophils % (manual) 3 (0-7); Metamyelocytes % 1; Monocytes % (manual) 19 (0-12); Myelocytes % 2; Reactive Lymphocytes 3
[2020-09-26] MEDS: ASPirin 81 mg TAB PO SCH (11:38)
[2020-09-26] MEDS: FAMOTIDINE 20 MG TAB PO SCH (11:38)
[2020-09-26] MEDS: APIXABAN 5 MG TAB PO SCH ×2 (11:39→21:28)
[2020-09-26] MEDS: TAMSULOSIN HYDROCHLORIDE 0.4 MG CAP PO SCH (11:39)
[2020-09-26] MEDS: AZITHROMYCIN 500MG/ 250ML 250 ML IV SCH (11:40)
[2020-09-26] MEDS: MULTIPLE VITAMIN TAB PO SCH (11:40)
[2020-09-26] MEDS: amLODIPine BESYLATE 5 MG TAB PO SCH (11:40)
[2020-09-26] MEDS: FINASTERIDE 5 MG TAB PO SCH (11:41)
[2020-09-26] MEDS: DOCUSATE SOD 100 MG CAP PO PRN (12:15)
[2020-09-26 13:00] VITALS: BP 109/59
[2020-09-26 17:00] VITALS: BP 110/57
[2020-09-26 22:00] VITALS: BP 117/59
[2020-09-27 05:00] VITALS: BP 122/61
[2020-09-27] MEDS: SUCRALFATE 1 GM/10 ML ORAL SUSP PO SCH ×2 (06:05→11:48)
[2020-09-27] MEDS: SODIUM CHLOR 0.9% PF (SALINE LOCK) 10ML VIAL/SYR IV SCH ×2 (06:05→14:14)
[2020-09-27] MEDS: SILDENAFIL CITRATE 20 MG TAB PO SCH ×2 (08:16→14:13)
[2020-09-27 09:00] VITALS: BP 134/63
[2020-09-27] MEDS: FAMOTIDINE 20 MG TAB PO SCH (09:09)
[2020-09-27] MEDS: PANTOPRAZOLE 40 MG/10 ML VIAL INJ IV SCH (09:09)
[2020-09-27] MEDS: ASPirin 81 mg TAB PO SCH (09:09)
[2020-09-27] MEDS: TAMSULOSIN HYDROCHLORIDE 0.4 MG CAP PO SCH (09:10)
[2020-09-27] MEDS: APIXABAN 5 MG TAB PO SCH (09:10)
[2020-09-27] MEDS: MULTIPLE VITAMIN TAB PO SCH (09:10)
[2020-09-27] MEDS: FINASTERIDE 5 MG TAB PO SCH (09:10)
[2020-09-27] MEDS: AZITHROMYCIN 500MG/ 250ML 250 ML IV SCH (09:11)
[2020-09-27] MEDS: amLODIPine BESYLATE 5 MG TAB PO SCH (09:11)
[2020-09-27 13:00] VITALS: BP 106/45
[2020-09-27 14:53] VITALS: BP 110/58
[2020-10-01] MEDS ORDERED: APIXABAN 5 MG TAB PO SCH (22:00)
== END 2020-09-27 17:45 | disposition home or self-care (01) | DRG 871 ==
LOC: ER 18:19 → TELE 18:20 → TELE-WESTW 09-21 15:21
PROVIDERS: ADMIT Nurse Practitioner Family; ATTEND Family Medicine
DX: A41.9 Sepsis, unspecified organism (principal); J18.9 Pneumonia, unspecified organism; N17.0 Acute kidney failure with tubular necrosis; I26.99 Other pulmonary embolism without acute cor pulmonale; I50.23 Acute on chronic systolic (congestive) heart failure; I13.0 Hypertensive heart and chronic kidney disease with heart failure and stage 1 through stage 4 chronic kidney disease, or unspecified chronic kidney disease; N20.0 Calculus of kidney; N40.0 Benign prostatic hyperplasia without lower urinary tract symptoms; Z20.828 Contact with and (suspected) exposure to other viral communicable diseases; E11.22 Type 2 diabetes mellitus with diabetic chronic kidney disease; I07.1 Rheumatic tricuspid insufficiency; I27.20 Pulmonary hypertension, unspecified; K40.20 Bilateral inguinal hernia, without obstruction or gangrene, not specified as recurrent; K82.4 Cholesterolosis of gallbladder; N18.30 Chronic kidney disease, stage 3 unspecified; N28.1 Cyst of kidney, acquired; Z79.899 Other long term (current) drug therapy; Z82.49 Family history of ischemic heart disease and other diseases of the circulatory system; Z83.3 Family history of diabetes mellitus; Z86.718 Personal history of other venous thrombosis and embolism; Z87.442 Personal history of urinary calculi; Z90.79 Acquired absence of other genital organ(s); Z95.828 Presence of other vascular implants and grafts
CPT/HCPCS: 36415; 71045; 74176; 76705; 76775; 78582; 80053; 81001; 82570; 82728; 83605; 83615; 83735; 83880; 84300; 84484; 85007; 85025; 85027; 85379; 85610; 85730; 86141; 87040; 87086; 87426; 93005; 93306; 93970; 96361; 96365; 97110; 97116; 97163; 97530; C9113; G0378; J1100; J2405; J3490

== ENCOUNTER 2023-03-30 15:06 | Emergency (ER) | payer OTHER ==
[~2023-03-30] VITALS: Ht 180.3 cm; Wt 85.9 kg
[~2023-03-30 15:06] MED LIST changes: +AMLO1TAB22 PO; -AMLO5TAB15 PO
[2023-03-30] MEDS ORDERED: COLCHICINE 0.6 MG CAP PO ONE ×2 (18:30→19:30)
[2023-03-30] MEDS ORDERED: methylPREDNISolone SOD SUCC 125 MG/2 ML VL IM ONE (18:30)
[2023-03-30] MEDS ORDERED: PRED30TA4 PO (18:34)
[2023-03-30] MEDS ORDERED: methylPREDNISolone SOD SUCC 40 MG/ML VL IM ONE (19:00)
[2023-03-30 19:45] VITALS: BP 170/73
== END 2023-03-30 20:16 | disposition home or self-care (01) ==
LOC: ER 15:06
DX: M10.9 Gout, unspecified (principal); I10 Essential (primary) hypertension; Z86.2 Personal history of diseases of the blood and blood-forming organs and certain disorders involving the immune mechanism; Z79.899 Other long term (current) drug therapy
CPT/HCPCS: 96372; 99283; J2920

== ENCOUNTER 2024-09-06 15:23 | Emergency (ER) | payer OTHER ==
[~2024-09-06] VITALS: Ht 180.3 cm; Wt 84.0 kg
[~2024-09-06 15:23] MED LIST changes: +PRED30TA4 PO; -TAMS0.4C36 PO; +TAMS0.4C39 PO
--- NOTE | 2024-09-06 15:49 | ED.PDOC ---
Musculoskeletal HPI Comments HPI: Poor Historian. 84-year-old male presents to the emergency department for complaint of left foot pain for the last two days. Pain is constant. He had similar symptoms in the past due to gout. He is not on any gout medications right now. [facility]. Patient denies any other acute symptoms. Patient denies any fall or trauma. Vitals: Temp:98.7 F Heart rate: 61 RR: 16 BP: 140/76 02 sat: 98% on room air PMH: HTN , gout PSH: denies social history: denies tobacco use, denies ETOH use, denies drug use medications: colchicine allergies: NKDA REVIEW OF SYSTEMS: CONSTITUTIONAL: Denies acute: fever, diaphoresis, chills, generalized weakness. HEAD: Denies acute: headache, photophobia Eyes: Denies acute: Double vision, vision loss, eye pain, eye discharge. EARS: Denies acute: tinnitus, hearing loss, ear discharge, ear pain, THROAT: Denies acute: sore throat, swelling, difficulty swallowing , pain with swallowing, change in voice. NECK: Denies acute: neck pain, neck swelling, stiff neck. HEART: Denies acute : chest pain, palpitations, LUNGS: Denies acute: SOB, wheezing, cough, hemoptysis ABDOMEN: Denies acute: abdominal pain, Nausea, Vomiting, diarrhea, melena , hematemesis, hematochezia SKIN: Denies acute: rash, redness, lesions, itchiness. EXTREMITIES: Denies acute: calf pain, numbness, tingling, weakness, Denies acute: Low back pain. Neuro: Denies acute: focal neurological deficit, motor or sensory focal neurological deficit, tremors, seizure like activity, confusion, dizziness, change in mental status, loss of bowel or bladder function, cauda equina like symptoms. : Denies acute: dysuria, hematuria, flank pain, increase in urinary frequency. PSYCH: Denies acute: hallucination, suicidal ideation, homicidal ideation. PHYSICAL EXAM: General: no acute distress, awake and alert. Head: normocephalic, atraumatic. Neck: supple, trachea is midline, no swelling. Throat: Normal phonation. Eyes:, no erythema, no purulent discharge, no proptosis, no icterus. Heart: regular rate, regular rhythm, no significant murmur appreciated. Lungs: no apparent respiratory distress, Able to speak in full sentences. No wheezing, no rhonchi, no crackles. No stridors Clear to auscultation bilaterally. Abdomen: non tender to palpation, non distended, soft, no guarding, no rebound, + bowel sounds. Neuro: Awake, Alert, oriented to name, self, situation, follows commands GCS=15. Speech is normal. Skin: no petechia, no purpura, no cyanosis, non-pale, not jaundice. Lower extremities: --no - Pitting edema no deformity, no focal swelling, no calf TTP. Patient is neurovascularly intact in left lower extremity. Pedal pulses are palpable. Motor and sensory are present. Patient has generalized tenderness to palpation of the dorsum of the left foot without apparent swelling or erythema or deformity. Denies any fall or trauma. Makes eye contact. moves all four extremities. Face: no apparent facial droop. Chief Complaint: lower extremity pain Time Seen by MD: 15:53 [facility] Provider: [facility] Reviewed Notes: Medications, Allergies Allergies: Coded Allergies: NO KNOWN ALLERGIES (Unverified , 04/27/19) Home Meds Active Scripts Prednisolone Sodium Phosphate (Prednisolone Sodium Phosp) 30 Mg Tab, 30 MG PO DAILY, #3 TAB 0 Refills Prov:KATY HUGHES 03/30/23 Reported Medications Amlodipine Besylate (Amlodipine Besylate) 5 Mg Tab, 10 MG PO DAILY for 30 Days, MG 04/13/18 Tamsulosin Hcl (Tamsulosin Hcl) 0.4 Mg Cap, 2 CAP PO DAILY, #30 CAP 5 Refills 03/10/17 Finasteride (Finasteride) 5 Mg Tab, 5 MG PO DAILY for 30 Days, MG 03/10/17 Information Source: Patient, Relative Mode of Arrival: Wheelchair Brought in by: daughter Past Medical History PAST MEDICAL HISTORY: Anemia, Gout, HTN, Kidney Stones, PE Surgical History: Denies all surgeries Family History Family History: Unknown Social History Smoker: Non-Smoker Alcohol: Denies ETOH Use Drugs: Denies Drug Use Lives In: Home Was a procedure done? Was a procedure done?: No Differential Diagnosis EXT Differential Diagnosis: Sprain, Gout, DJD, Contusion, Other (Leg swellingDdx include but not limited to DVT, ischemic limb, pitting edema, volume overload, CHF, cellulitis, hematoma, compartment syndrome, dependent edema, venous stasis.) X-Ray, Labs, Meds, VS Vital Signs Date Time Temp Pulse Resp B/P (MAP) Pulse Ox O2 Delivery O2 Flow Rate FiO2 09/06/24 19:23 97.7 60 16 129/91 (104) 97 97.7 09/06/24 16:04 98.7 61 16 140/76 (97) 98 Lab Test 09/06/24 16:23 Range/Units White Blood Count 9.1 4.4-10.8 10^3/uL Red Blood Count 4.76 4.5-5.90 10^6/uL Hemoglobin 15.0 13.5-17.5 g/dL Hematocrit 45.2 41.0-53.0 % Mean Corpuscular Volume 94.9 80.0-100.0 fL Mean Corpuscular Hemoglobin 31.6 28.0-32.0 pg Mean Corpuscular Hemoglobin Concent 33.3 32.0-36.0 g/dL Red Cell Distribution Width 15.3 H 11.8-14.3 % Platelet Count 143 140-450 10^3/uL Mean Platelet Volume 10.1 6.9-10.8 fL Neutrophils (%) (Auto) 67.4 37.0-80.0 % Lymphocytes (%) (Auto) 19.7 10.0-50.0 % Monocytes (%) (Auto) 11.2 0.0-12.0 % Eosinophils (%) (Auto) 1.0 0.0-7.0 % Basophils (%) (Auto) 0.7 0.0-2.0 % Neutrophils # (Auto) 6.1 1.6-8.6 10 ^3/uL Lymphocytes # (Auto) 1.8 0.4-5.4 10 ^3/uL Monocytes # (Auto) 1.0 0-1.3 10 ^3/uL Eosinophils # (Auto) 0.1 0-0.8 10 ^3/uL Basophils # (Auto) 0.1 0-0.2 10 ^3/uL Nucleated Red Blood Cells 0.1 % Erythrocyte Sedimentation Rate 14 0-20 mm/hr Sodium Level 142 136-145 mmol/L Potassium Level 4.6 3.5-5.1 mmol/L Chloride Level 109 H 98-107 mmol/L Carbon Dioxide Level 31 20-31 mmol/L Anion Gap 2 L 5-15 Blood Urea Nitrogen 14 9-23 mg/dL Creatinine 1.55 H 0.700-1.30 mg/dL Glomerular Filtration Rate Calc 44 >90 mL/min BUN/Creatinine Ratio 9.0 L 10.0-20.0 Serum Glucose 91 74-106 mg/dL Lactic Acid Level 1.0 0.4-2.0 mmol/L Uric Acid 8.4 3.7-9.2 mg/dL Calcium Level 9.7 8.7-10.4 mg/dL C-Reactive Protein High Sensitivity 6.86 H <1.0 mg/dL B-Type Natriuretic Peptide 148.83 0-100 pg/mL Current Medications Medications (Trade) Dose Ordered Sig/Yolanda Route Start Time Stop Time Status Last Admin Colchicine (Colcrys) 1.2 mg ONCE ONCE PO 09/06/24 18:30 09/06/24 18:31 DC 09/06/24 19:28 Time of 1ST Reevaluation: 19:20 Reevaluation 1ST: Improved Patient Education/Counseling: Diagnosis, Treatment Family Education/Counseling: Diagnosis, Treatment Comments Patient presented with the above HPI.--foot pain--workup was initiated. patient was found with the above mentioned diagnosis. Patient was given: Colchicine Patient ED course and VS have been stabilized. Patient has been reassessed in t he ED and remained in a stable condition. Pertinent incidental findings were discussed with the patient and/or family. Patient/family voices understanding and is agreeable with plan. Patient has been observed in the ED adequate length of time to insure improvement/stability. patient was discharged home in a stable condition. All the reports of any imaging studies that were ordered by myself were reviewed by myself. Departure 1 Departure Time of Disposition: 16:12 Impression: Primary Impression: Left foot pain Disposition: 01 HOME / SELF CARE / HOMELESS Condition: Stable Additional Instructions: Additional discharge instructions: You MUST follow-up with your primary care/family doctor in 1 to 2 days. If you are unable to see your primary care/family doctor, please return to our emergency room for re-assessment and re-evaluation in 1 to 2 days. Return to the emergency room here in our facility or to the nearest ER TED if your symptoms change or worsen. CONSULTATIONS: you MUST Follow-up for consultation as soon as possible with: - rheumatology in 1-2 days. Please call for appointment. You MUST call the consultants office yourself to make an appointment. You may need to arrange that through your insurance and/or your primary/family doctor. If you are unable to see the enterprise resource planning consultant in 1 to 2 days, you must return to our emergency room (or any other ER of your choice) for re-assessment and re- evaluation. Adequate fluid hydration. Use [id number] ibuprofen with food for pain control. Discharged With: Self Critical Care Note Critical Care Time?: No I personally scribed for MARTINA KIMBROUGH DO ([email or web address]) on 09/06/24 at 15:49. Electronically submitted by Nancy Izaguirre (MAIA). I personally scribed for MARTINA KIMBROUGH DO ([email or web address]) on 09/06/24 at 15:54. Electronically submitted by Nancy Izaguirre (MAIA). MARTINA KIMBROUGH DO Sep 06, 2024 15:49
[2024-09-06 16:53] LABS: Basophils # (auto) 0.1 10 ^3/uL (0-0.2); Basophils % (auto) 0.7 % (0.0-2.0); Eosinophils # (auto) 0.1 10 ^3/uL (0-0.8); Hematocrit 45.2 % (41.0-53.0); Lymphocytes # (auto) 1.8 10 ^3/uL (0.4-5.4); Lymphocytes % (auto) 19.7 % (10.0-50.0); Mean Corpuscular Hemoglobin 31.6 pg (28.0-32.0); Mean Corpuscular Hgb Conc. 33.3 g/dL (32.0-36.0); Mean Corpuscular Volume 94.9 fL (80.0-100.0); Monocytes % (auto) 11.2 % (0.0-12.0); Neutrophils # (auto) 6.1 10 ^3/uL (1.6-8.6); Neutrophils % (auto) 67.4 % (37.0-80.0); Nucleated Red Blood Cells % 0.1 %; Platelet Count (auto) 143 10^3/uL (140-450); Red Blood Cells 4.76 10^6/uL (4.5-5.90); Red Cell Distribution Width 15.3 % (11.8-14.3); White Blood Cell 9.1 10^3/uL (4.4-10.8)
[2024-09-06 17:04] LABS: Chloride 109 mmol/L (98-107); Potassium 4.6 mmol/L (3.5-5.1); Sodium 142 mmol/L (136-145)
[2024-09-06 17:05] LABS: Anion Gap 2 (5-15); Carbon Dioxide 31 mmol/L (20-31)
[2024-09-06 17:06] LABS: Calcium 9.7 mg/dL (8.7-10.4)
[2024-09-06 17:10] LABS: Glucose 91 mg/dL (74-106)
[2024-09-06 17:11] LABS: Blood Urea Nitrogen 14 mg/dL (9-23)
--- NOTE | 2024-09-06 17:15 | DVH ---
EXAM: XY CHEST PORTABLE TECHNIQUE: Single frontal chest radiograph CLINICAL HISTORY: foot pain COMPARISON: CHEST PORTABLE on DOS: 09/25/20, CHEST PORTABLE on DOS: 09/22/20 Findings/Impression: Frontal chest radiograph demonstrates no acute osseous or superficial soft tissue abnormalities. The trachea is midline. The cardiac silhouette and mediastinum are within normal limits. No pneumothorax, pleural effusions, or consolidations.
--- NOTE | 2024-09-06 17:18 | DVH ---
EXAM: XY L FOOT 2 VIEW XRAY CLINICAL HISTORY: foot pain COMPARISON: None TECHNIQUE: XY L FOOT 2 VIEW XRAY Findings/Impression: 2 views of the left foot. There is no evidence of an acute fracture, dislocation, blastic, or lytic lesions. No radiopaque foreign bodies. No superficial soft tissue abnormalities.
[2024-09-06 17:21] LABS: CRP High Sensitivity 6.86 mg/dL (<1.0)
[2024-09-06 18:11] LABS: Erythrocyte Sedimentation Rate 14 mm/hr (0-20)
[2024-09-06 19:23] VITALS: BP 129/91; PULSE 60; RESP 16; TEMP 97.7; O2SAT 97
[2024-09-06] MEDS: COLCHICINE 0.6 MG CAP PO ONE (19:28)
== END 2024-09-06 19:34 | disposition home or self-care (01) ==
LOC: ER 15:29
DX: M79.672 Pain in left foot (principal); Z88.8 Allergy status to other drugs, medicaments and biological substances
CPT/HCPCS: 36415; 71045; 73620; 80048; 83605; 83880; 84550; 85025; 85652; 86141